=== PATIENT | female | born 1940 | race Caucasian/White ===

== ENCOUNTER 2016-08-01 08:08 | Emergency (ER) | payer MEDICARE ==
[2016-08-01] MEDS ORDERED: Aspirin 81 MG Tab.Chew PO ONE (10:59)
[2016-08-01] MEDS ORDERED: Clopidogrel 75 MG Tab PO ONE (10:59)
[2016-08-01] MEDS ORDERED: Heparin Sodium/D5W 25,000 UNITS/500 ML BAG IV SCH (11:00)
[2016-08-01] MEDS ORDERED: Heparin Sodium 5,000 UNITS/0.5 ML Syringe IVPUSH ONE (11:10)
[2016-08-01 11:13] VITALS: BP 148/91
--- NOTE | 2016-08-01 12:15 | ER ---
HISTORY OF PRESENT ILLNESS: A 76-year-old lady who comes in by ambulance. She woke up this morning, about 7:30. She was having a bad dream. She felt something wrong in her chest, it felt like her heart was working hard. She did take a nitroglycerin and it resolved her symptoms. She has been asymptomatic since taking the nitroglycerin. The patient states that she feels fine, she has not been sick recently, and she has only used the nitroglycerin one time this morning. She has had the bottle for about a year and a half. She does have a history of coronary artery disease, and did have one stent placed about 2 years ago. Again, the patient denies any symptoms at this time and tells me that she feels fine. No problems with nausea, shortness of breath, or coughing. Her family member who is here states that she was a little dizzy or almost unresponsive for a very short time. This was right around the time she took the nitroglycerin. CURRENT MEDS: Aspirin, Fosamax, Tylenol p.r.n., and metoprolol. ALLERGIES: DEMEROL, MORPHINE, AND HYDROCODONE. OBJECTIVE: GENERAL APPEARANCE: The patient is awake and alert. She is pleasant and talkative. No obvious distress. VITAL SIGNS: Reviewed. Initially a blood pressure of 115/79. Pulse is 101. She is afebrile. O2 sats are 94% on room air initially. PHYSICAL EXAM: Oral mucous membranes are moist. Tonsils not enlarged or injected. Pharynx not inflamed. NECK: Supple. LUNGS: Clear. CARDIAC: Heart sounds distinct. S1, S2 present. No murmurs noted. SKIN: Warm and dry. ABDOMEN: Soft and nontender. Bowel sounds are present. IMAGING: An EKG initially shows a normal sinus rhythm with an incomplete right bundle- branch. There was some questionable ST depression at this time. Chest x-ray is unremarkable. LABORATORY DATA: Labs include a CBC which is normal. CMP is unremarkable. Troponin is elevated at 0.140. PT/INR are also normal. DIAGNOSIS: Ischemic chest pain. TREATMENT PLAN: I did consult with color laboratory technician in [place], who accepted the patient and transfer made to Dr. Pappas, hospitalist who will be accepting the patient. The patient will be transferred by air to [place] in [place] for further evaluation and treatment. The patient will be started on heparin here 4000 unit bolus followed by 1000 unit/hour drip. Plavix 600 mg will be given p.o., and she will be given 4 baby aspirin to chew. A final note, the patient does have some a history of carotid artery stenosis. She is in the process of being worked up for this at this time. LOUIE/CHASITY /[id number]
--- NOTE | 2016-08-02 07:41 | CR ---
DATE OF SERVICE: 08/01/16 CLINICAL DATA: Irregular heart rate AP PORTABLE CHEST: No priors. The heart size is at the upper limits of normal. There is calcification of the aortic arch. The lungs are mildly hyperexpanded but clear. No pneumothorax. No pleural effusions. There are multiple healed rib fractures on the right. [id number] MTDD
== END 2016-08-01 11:48 ==
LOC: LB.ED 08:08
DX: I20.9 Angina pectoris, unspecified (principal); Z88.5 Allergy status to narcotic agent
CPT/HCPCS: 36415; 71010; 80053; 84484; 85025; 85610; 85730; 93005; 96365; 96375; 99284; 99285; A0429; A0888; A9270; J1644